=== PATIENT | female | born 1990 | race Two or more races ===

== ENCOUNTER 2021-03-23 18:05 | Emergency (ER) | payer SELFPAY ==
[~2021-03-23] VITALS: Ht 160 cm; Wt 89.4 kg
[2021-03-23 18:17] VITALS: BP 110/72
== END 2021-03-23 18:20 | disposition left against medical advice (07) ==
LOC: ER 18:05
DX: R10.11 Right upper quadrant pain (principal); R11.2 Nausea with vomiting, unspecified; Z53.21 Procedure and treatment not carried out due to patient leaving prior to being seen by health care provider